=== PATIENT | female | born 1990 | race Caucasian/White ===

== ENCOUNTER 2016-10-31 12:27 | Emergency (ER) | payer SELFPAY ==
[~2016-10-31] VITALS: Wt 74.0 kg
[2016-10-31] MEDS ORDERED: KETOROLAC 15 MG INJ IM STA (13:24)
[2016-10-31] MEDS ORDERED: FAMOTIDINE 20 MG INJ IV ONE (13:30)
[2016-10-31] MEDS ORDERED: SOD CHLORIDE 0.9% 1,000 ML IV ONE (13:30)
[2016-10-31] MEDS ORDERED: KETOROLAC 15 MG INJ IV STA (13:44)
[2016-10-31 13:57] LABS: ADD SCAN DIFF NO
[2016-10-31 13:59] LABS: BASOPHILS % 0.3 % (0.0-2.0); EOSINOPHILS # 0.1 10^3/ul (0.0-0.5); EOSINOPHILS % 1.1 % (0.0-7.0); HEMATOCRIT 40.6 % (37.0-47.0); HEMOGLOBIN 13.4 g/dl (12.0-16.0); LYMPHOCYTES # 0.8 10^3/ul (0.8-2.9); MEAN CORPUSCULAR HEMOGLOBIN 30.7 pg (29.0-33.0); MEAN CORPUSCULAR VOLUME 93.1 fl (82.0-101.0); MEAN PLATELET VOLUME 10.3 fl (7.4-10.4); MONOCYTE # 0.6 10^3/ul (0.3-0.9); MONOCYTES % 7.8 % (0.0-11.0); NEUTROPHIL # 5.7 10^3/ul (1.6-7.5); NEUTROPHILS % 79.4 % (39.0-77.0); PLATELET COUNT 189 10^3/UL (140-415); RED BLOOD COUNT 4.36 10^6/ul (4.20-5.40); RED CELL DISTRIBUTION WIDTH 13.1 % (11.5-14.5); WHITE BLOOD COUNT 7.2 10^3/ul (4.8-10.8)
[2016-10-31 14:09] LABS: ADD UMIC YES; UR BLOOD (Dip) 2+ (NEGATIVE); UR CLARITY SLIGHTLY CLOUDY (CLEAR); UR COLOR YELLOW (YELLOW); UR GLUCOSE (Dip) NEGATIVE (NEGATIVE); UR KETONES (Dip) 15 (NEGATIVE); UR LEUKOCYTE ESTERASE (Dip) NEGATIVE (NEGATIVE); UR NITRITE (Dip) NEGATIVE (NEGATIVE); UR TOTAL PROTEIN (Dip) 1+ (NEGATIVE); UR UROBILINOGEN (Dip) 1.0 E.U./dL (0.1-1.0)
[2016-10-31 14:19] LABS: ALBUMIN 5.1 g/dl (3.3-4.9); ALBUMIN/GLOBULIN RATIO 1.64; BILIRUBIN,INDIRECT 0.9 mg/dl (0-1.1); BILIRUBIN,TOTAL 0.9 mg/dl (0.2-1.3); CALCIUM 8.7 mg/dl (8.4-10.2); CREATININE 0.63 mg/dl (0.44-1.00); POTASSIUM 3.7 mmol/L (3.5-5.1); TOTAL PROTEIN 8.2 g/dl (6.1-8.1)
[2016-10-31 14:22] LABS: UR BILIRUBIN (Dip) NEGATIVE (NEGATIVE)
[2016-10-31 14:30] LABS: UR MUCUS MANY; UR SQUAMOUS EPITHELIAL CELL FEW
[2016-10-31 14:32] LABS: UR BACTERIA MODERATE
--- NOTE | 2016-10-31 14:32 | RADRPT ---
PROCEDURE: US Abdomen limited. CLINICAL INDICATION: Pain. TECHNIQUE: Multiple sonographic images of the right upper quadrant of the abdomen were obtained. COMPARISON: None. FINDINGS: The visualized pancreas, aorta and IVC are unremarkable. The liver measures 13.2 cm in a craniocaudal dimension. There is no evidence of focal hepatic lesio n or intrahepatic biliary duct dilatation. The main portal vein is patent with normal antegrade karla w. The gallbladder is not distended. There is no gallbladder wall thickening or pericholecystic fl uid. There are no mobile echogenic foci with acoustic shadowing to suggest the presence of cholelit hiasis. There is a tiny 2 mm gallbladder polyp. The common bile duct measures 1.3 mm. The right kidney measures 9.1 x 3.8 x 4.1 cm. There is no hydronephrosis or abnormal perinephric fl uid collection. IMPRESSION: Tiny gallbladder polyp. Otherwise, unremarkable right upper quadrant abdominal ultrasound. RPTAT: QQ .Denise Tran MD, MD Date Time Electronically viewed and signed by .Denise Tran MD, on 10/31/2016 14:32 .T/
--- NOTE | 2016-10-31 20:42 | ERD ---
ER Documentation Chief Complaint Date/Time DATE: 10/31/16 TIME: 16:01 Chief Complaint ABD PAIN WITH DIARRHEA HPI This 26-year-old female presents to emergency department today with abdominal pain. Patient reports symptoms started yesterday in the morning with a headache , reports abdominal pain in the afternoon described as sharp and achy in her epigastric area. Patient states that she has been able to eat but reports a decreased appetite. Patient states that diarrhea started this morning. Patient reports fever this morning 102, chills, she has been using over-the- counter Tylenol for symptomatic relief. Denies vomiting, blood in her stool. Chest pain, back pain, shortness of breath. ROS All systems reviewed and are negative except as per history of present illness. PMhx/Soc Medical and Surgical Hx: pt denies Medical Hx, pt denies Surgical Hx Hx Alcohol Use: No Hx Substance Use: No Smoking Status: Current every day smoker Physical Exam Vitals Vital Signs Date Time Temp Pulse Resp B/P Pulse Ox O2 Delivery O2 Flow Rate FiO2 10/31/16 12:35 98.1 79 18 119/75 99 Physical Exam Const: Obvious discomfort no acute distress Head: Atraumatic Eyes: Normal Conjunctiva PERRLA, EOMI ENT: Tympanic membranes translucent, auditory canals are clear, nasal mucosa edematous without bleeding points pharynx pink Neck: Full range of motion.. Resp: Respirations even and unlabored, no respiratory distress Cardio: Regular rate and rhythm, no murmurs Abd: Soft, epigastric tenderness, no McBurney point tenderness Skin: Back: Ext: Neur: Awake and alert Psych: Normal Mood and Affect Result Diagram: 10/31/16 1342 10/31/16 1342 Results 24 hrs Laboratory Tests Test 10/31/16 13:38 10/31/16 13:42 Urine Color YELLOW Urine Clarity SLIGHTLY CLOUDY Urine pH 6.5 Urine Specific [place] 1.020 Urine Ketones 15 Urine Nitrite NEGATIVE Urine Bilirubin NEGATIVE Urine Ictotest Urine Urobilinogen 1.0 E.U./dL Urine Leukocyte Esterase NEGATIVE Urine Microscopic RBC 10-25/HPF Urine Microscopic WBC 0-2/HPF Urine Squamous Epithelial Cells FEW Urine Bacteria MODERATE Urine Mucus MANY Urine Hemoglobin 2+ Urine Glucose NEGATIVE% Urine Total Protein 1+ White Blood Count 7.210^3/ul Red Blood Count 4.3610^6/ul Hemoglobin 13.4g/dl Hematocrit 40.6% Mean Corpuscular Volume 93.1fl Mean Corpuscular Hemoglobin 30.7pg Mean Corpuscular Hemoglobin Concent 33.0g/dl Red Cell Distribution Width 13.1% Platelet Count 96417^3/UL Mean Platelet Volume 10.3fl Neutrophils % 79.4% Lymphocytes % 11.0% Monocytes % 7.8% Eosinophils % 1.1% Basophils % 0.3% Nucleated Red Blood Cells % 0.0/100WBC Neutrophils # 5.710^3/ul Lymphocytes # 0.810^3/ul Monocytes # 0.610^3/ul Eosinophils # 0.110^3/ul Basophils # 0.010^3/ul Nucleated Red Blood Cells # 0.010^3/ul Sodium Level 138mmol/L Potassium Level 3.7mmol/L Chloride Level 102mmol/L Carbon Dioxide Level 26mmol/L Anion Gap 14 Blood Urea Nitrogen 7mg/dl Creatinine 0.63mg/dl Glucose Level 101mg/dl Calcium Level 8.7mg/dl Total Bilirubin 0.9mg/dl Direct Bilirubin 0.00mg/dl Indirect Bilirubin 0.9mg/dl Aspartate Amino Transf (AST/SGOT) 23IU/L Alanine Aminotransferase (ALT/SGPT) 24IU/L Alkaline Phosphatase 66IU/L Total Protein 8.2g/dl Albumin 5.1g/dl Globulin 3.10g/dl Albumin/Globulin Ratio 1.64 Lipase 57U/L Current Medications Medications (Trade) Dose Ordered Sig/Rochelle Route PRN Reason Start Time Stop Time Status Last Admin Dose Admin Ketorolac Tromethamine (Toradol) 15 mg ONCE STAT IM 10/31/16 13:24 10/31/16 13:46 DC Famotidine 20 mg 20 mg ONCE ONCE IV 10/31/16 13:30 10/31/16 13:31 DC 10/31/16 13:47 Sodium Chloride (NS) 1,000 ml @ 1,000 mls/hr Q1H ONCE IV 10/31/16 13:30 10/31/16 14:29 DC 10/31/16 13:48 Ketorolac Tromethamine (Toradol) 15 mg ONCE STAT IV 10/31/16 13:44 10/31/16 13:46 DC 10/31/16 13:47 Interpretation text CBC shows no evidence of hemorrhage or infection Chemistry shows no evidence of significant electrolyte abnormalities or renal insufficiency Liver function tests shows no evidence of acute biliary or hepatic dysfunction Lipase shows no evidence of acute pancreatitis Urinalysis negative for leukocytosis, nitrates, or microscopic hematuria Procedures/MDM This pleasant 26-year-old female presents to emergency department today with epigastric pain described as sharp and achy. Headache, with diarrhea without vomiting. Patient reports fever 102 at home treated with Tylenol. Cholecystitis, cholelithiasis, pancreatitis, biliary colic, considered, ultrasound documents pancreas, aortic, and IVC are unremarkable. There is no evidence of focal hepatic lesion or intrahepatic biliary duct dilation. The main portal vein is patent with normal antegrade flow. The gallbladder is not distended. There is no gallbladder wall thickening or pericholecystic fluid. There is no mobile echogenic foci with acoustic shadowing to suggest the presence of cholelithiasis. There is a tiny 2 mm gallbladder polyp. Common bile duct measures 1.3 mm. The right kidney measures 1.9 x 3.8 x 4.1 cm there is no hydro-nephrosis or abnormal perinephric fluid collection. Complete blood count negative for hemorrhage or acute infection. There is no evidence of pancreatitis, lipase is normal. LFTs within normal limits. No evidence of hepatitis. Patient treated with a liter of normal saline, Pepcid, Zofran reassessed after 90 minutes reports improvement of symptoms. Patient is able to drink water, ambulate freely in emergency department prior to discharge, patient is sent home with prescription of Pepcid 20 mg twice daily, Zofran 4 mg as needed, Motrin as needed fever reduction. Increase fluids, increase rest, low residue diet advance as tolerated. I feel the patient is stable for discharge at this time with outpatient management and follow-up with primary care physician. I have discussed results, examination findings, the treatment plan with the patient and family present prior to discharge. Indications for emergent reevaluation, side effects of medication were also discussed. All questions were answered. Patient verbalizes understanding and agrees with plan of care. Departure Diagnosis: Primary Impression: Abdominal pain Abdominal location: epigastric Qualified Code: R10.13 - Epigastric pain Additional Impression: Gastritis Gastritis type: unspecified gastritis Chronicity: unspecified Gastritis bleeding: without bleeding Qualified Code: K29.70 - Gastritis without bleeding, unspecified chronicity, unspecified gastritis type Patient Instructions: Abdominal Pain [facility] Additional Instructions: Thank you for for coming to [facility] for your care today. Please ask your nurse or provider if you have questions about your care today and do not leave until all your questions have been answered. Please use any medications given as directed and follow-up with your doctor (or the doctor you were referred to) in the next 2-3 days. If you do not have a primary care doctor you may follow up at the [facility] (listed below). You may also use motrin and tylenol as needed for fever and/or pain unless instructed otherwise by your provider or nurse. Indications for more urgent follow-up have been discussed, but you may return to the Emergency Department at ANY time for any worrisome or worsening symptoms. If you have abdominal pain, please know that no test or exam you received is perfect and you should follow up within 8 hours for continued pain. If you had any imaging studies today, such as an X-Ray or CT Scan, these studies will be reviewed later by a radiologist. You will be called if there are important findings that were not identified today, so make sure the contact information you provided at registration is correct. If you received any narcotic pain control medicine today, such as Vicodin, Morphine or Dilaudid, your coordination and judgment may be affected for a number of hours. Please do not drive or operate heavy machinery, and you may want someone to assist you at home. If you were given a prescription for narcotic medication, be aware that it is very addictive- use sparingly and only if necessary. ESTER CORNELL Oct 31, 2016 16:14
== END 2016-10-31 16:27 | disposition home or self-care (01) ==
LOC: FTE 12:27
DX: R10.13 Epigastric pain (principal); K29.70 Gastritis, unspecified, without bleeding; F17.210 Nicotine dependence, cigarettes, uncomplicated
CPT/HCPCS: 76705; 80053; 81001; 83690; 85025; J1885; J7030; 36415; 96374; 96375